=== PATIENT | male | born 1965 | race Caucasian/White ===

== ENCOUNTER → 2020-01-28 | Day surgery (SDC) | payer BC ==
[2020-01-22 10:19] LABS: BASOPHILS # (AUTO) 0.1 (0.0-0.1); BASOPHILS % 0.8 % (0.0-1.0); EOSINOPHILS # (AUTO) 0.2 (0.0-0.4); HEMATOCRIT 42.9 % (38.2-49.6); HEMOGLOBIN 14.1 g/dL (14.0-18.0); LYMPHOCYTES % 29.9 % (18.0-39.1); MEAN CORPUSCULAR HEMOGLOBIN 30.9 pg (28-32); MEAN CORPUSCULAR HGB CONC 32.9 g/dL (31-35); MEAN CORPUSCULAR VOLUME 93.9 fL (81-99); MONOCYTES # (AUTO) 0.5 (0.2-0.8); MONOCYTES % 8.1 % (4.4-11.3); NEUTROPHILS # (AUTO) 3.8 (2.1-6.9); NEUTROPHILS % 57.9 % (38.7-80.0); PLATELET COUNT 291 x10e3/uL (140-360); RED BLOOD COUNT 4.57 x10e6/uL (4.3-5.7); RED CELL DISTRIBUTION WIDTH 13.6 % (11.7-14.4)
--- NOTE | 2020-01-22 11:12 | Diagnostic Imaging Report ---
EXAMINATION: CHEST 2 VIEWS INDICATION: ^[id number] ^[id number] ^PRE-OP COMPARISON: None FINDINGS: PA and lateral views TUBES and LINES: None. LUNGS: Lungs are well inflated. Lungs are clear. Incidental right upper lobe azygous fissure. There is no evidence of pneumonia or pulmonary edema. PLEURA: Trace left pleural effusion versus pleural thickening. HEART AND MEDIASTINUM: The cardiomediastinal silhouette is unremarkable. BONES AND SOFT TISSUES: No acute osseous lesion. Soft tissues are unremarkable. UPPER ABDOMEN: No free air under the diaphragm. IMPRESSION: Trace left pleural effusion versus pleural thickening. No consolidations in the lungs. Signed by: Dr. Crystal Cuevas M.D. on 01/22/2020 11:09 AM
[~2020-01-28] MED LIST: AMLODIPINE BESYL5 MG PO; CEFAZOLIN SOD 1 GM/NS 50ML 50 ML IV ONE; EPHEDRINE SULFATE INJ 50 MG/ML VIAL ONE; FISH OIL 1,0001 EAC2 PO; KETOROLAC TROMETHAMINE 30 MG/ML VIAL ONE; LIDOCAINE 1% W/EPINEPHRINE 20 ML VIAL ONE; LIDOCAINE HCL 2% LOCAL INJ 5 ML SDV VIAL INJ ONE; LOSARTAN POTAS100 MG PO; MUPIROCIN 2% OINT 22 GM TUBE ONE; NORCO 10-325 T1 EACH PO; ONDANSETRON HCL INJ 2MG/ML 2ML 2 MG/ML VIAL ONE; PANTOPRAZOLE SO40 MG PO; PROPOFOL IV EMULSION 10 MG/ML 20 ML VIAL ONE; SEVOFLURANE INHAL SOLN 250 ML PEN BTL ONE; TYLENOL EXTRA500 MG PO
[2020-01-28 09:10] VITALS: BP 138/80
--- NOTE | 2020-01-28 13:41 | Operative Report ---
DATE OF PROCEDURE: 01/28/2020 SURGEON: Presley Britton MD PREOPERATIVE DIAGNOSIS: Wound, right ear secondary to Mohs micrographic excision of a basal cell carcinoma. POSTOPERATIVE DIAGNOSIS: Wound, right ear secondary to Mohs micrographic excision of a basal cell carcinoma. PROCEDURE: Secondary closure of Mohs defect, right ear. ANESTHESIA: General. HISTORY: The patient is a 54-year-old male, who underwent Mohs micrographic excision of approximately 25% of the superior portion of the right ear. The surgeon made no arrangement for closure of the ear and post procedure the patient has an open wound with exposed cartilage. The risks, benefits, and alternatives were discussed with the patient. He is prepared to undergo the procedure as outlined. PROCEDURE IN DETAIL: The patient was marked preoperatively in the holding area. He was brought to the operating theater and after the induction of adequate general anesthesia, he was prepped and draped in a supine position and a time-out was performed. The procedure was begun by infiltrating both the anterior and posterior aspects of the right ear with 1% Xylocaine with epinephrine. After waiting appropriate amount of time for maximum vasoconstrictive affects, the anterior and posterior skin and the tissues including the perichondrium were then elevated off the cartilaginous structures of the helix and the anti-helix remains. After approximately 1 cm of dissection in a caudal direction, the irregular devitalized cartilage was then sharply excised and removed. The wound was irrigated with bacteriostatic saline and the skin edges were then sharply debrided of the devitalized portions that remained from the Mohs micrographic procedure. At this point, the remaining soft tissues were then closed using running 5-0 chromic in an interrupted fashion. Bactroban ointment, Xeroform gauze, and a sterile dressing are applied. The estimated blood loss for the procedure was 5 mL. The patient tolerated the procedure well and was brought to recovery room in satisfactory condition and discharged with a postoperative instruction sheet as well as a followup appointment. Presley Britton MD ER/MODL /[id number]
== END | disposition home or self-care (01) ==
LOC: OR 05:40
PROVIDERS: ATTEND Plastic Surgery
DX: Z48.3 Aftercare following surgery for neoplasm (principal); Z85.828 Personal history of other malignant neoplasm of skin; I10 Essential (primary) hypertension; J44.9 Chronic obstructive pulmonary disease, unspecified; K21.9 Gastro-esophageal reflux disease without esophagitis; Z01.810 Encounter for preprocedural cardiovascular examination; Z01.812 Encounter for preprocedural laboratory examination; Z01.818 Encounter for other preprocedural examination; Z11.59 Encounter for screening for other viral diseases; Z85.118 Personal history of other malignant neoplasm of bronchus and lung; Z87.891 Personal history of nicotine dependence
CPT/HCPCS: 13160; 36415; 71046; 85025; 87635; 93005; J0690; J1885; J2001; J2405; U0002